=== PATIENT | male | born 1960 | race Caucasian/White ===

== ENCOUNTER 2019-07-12 07:51 | Observation (INO) | payer SELFPAY ==
[~2019-07-12] VITALS: Ht 185.4 cm; Wt 86.4 kg
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
--- NOTE | 2019-07-12 09:24 | RAD ---
Examination: CT HEAD AND CERVICAL SPINE WO History: Fall, pain Comparison/Correlation: None Findings: Axial images of the head and cervical spine were obtained without contrast. Sagittal and coronal reformatted images of the cervical spine were provided. Ventricles are normal size. No intracranial hemorrhage or mass effect. Partial opacification of the left frontal sinus medially is present. No depressed skull fracture. Reversal of cervical lordosis is present. Atlantoaxial joint degenerative remodeling is present. Bony densities subjacent to the anterior arch of C1 is present. These probably represent accessory ossification centers. No soft tissue swelling at the site. The bony structures are well corticated. Moderate C5-6 and C6-7 disc space narrowing is present. Significant spurring is present involving the cervical spine vertebral bodies anteriorly. Spurring at the posterior margin of the C5-C7 disc space levels also noted with marked bony encroachment on the neural foramina at the levels especially on the right but also on the left. Soft tissues are unremarkable. Spinal canal stenosis is noted in multiple levels. This is especially noted seen at C6. Short pedicles noted. Impression: No intracranial hemorrhage. Advanced degenerative changes of the cervical spine. No displaced fracture or bone destruction. Spinal canal and foraminal stenoses are present. Reversal of cervical lordosis may represent spasm or contraction. PQRS Compliance Statement: One or more of the following individualized dose reduction techniques were utilized for this examination: 1. Automated exposure control 2. Adjustment of the mA and/or kV according to patient size 3. Use of iterative reconstruction technique Electronically signed by: Connor Chen MD (07/12/2019 9:20 AM) [facility]
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
--- NOTE | 2019-07-12 09:37 | RAD ---
Examination: CT LUMBAR SPINE WO CONTRAST History: Fall, pain Comparison/Correlation: None Findings: Axial images of the lumbar spine were obtained without contrast. Sagittal and coronal reformatted images were provided. Alignment is normal. Mild to moderate L2-3 disc space narrowing is present. Spurring is noted at multiple levels of the lumbar spine. Facet joint degenerative changes of the lumbar spine are present. No displaced fracture or bone destruction. Soft tissues are unremarkable. Surgical clips are present involving the left pelvic sidewall. Severe spinal canal stenosis at L3-4 and L4-5 is present with concentric disc bulge and ligamentum flavum hypertrophy along with facet joint degenerative hypertrophy. Partially visualized retroperitoneum is unremarkable. Vertebral body heights are adequate. Impression: There is severe canal stenosis at L3-L4 and L4-5. Degenerative changes of the spine noted. No fracture, malalignment, or bone destruction. PQRS Compliance Statement: One or more of the following individualized dose reduction techniques were utilized for this examination: 1. Automated exposure control 2. Adjustment of the mA and/or kV according to patient size 3. Use of iterative reconstruction technique Electronically signed by: Connor Chen MD (07/12/2019 9:34 AM) [facility]
[2019-07-12] MEDS ORDERED: ACETAMINOPHEN 325 MG TABLET. PO PRN (10:15)
[2019-07-12] MEDS ORDERED: LORazepam 0.5 MG TABLET PO ONE (10:15)
[2019-07-12] MEDS ORDERED: DOCUSATE SODIUM 100 MG CAPSULE. PO PRN (10:15)
[2019-07-12] MEDS ORDERED: HYDROcodone/APAP 5/325MG 1 TAB TABLET PO ONE (10:15)
[2019-07-12] MEDS ORDERED: ZOLPIDEM 5 MG TABLET. PO PRN (10:15)
[2019-07-12] MEDS ORDERED: ALBUTEROL SULFATE 2.5 MG/3 ML NEBU. NEB PRN (10:15)
[2019-07-12] MEDS ORDERED: LORazepam 0.5 MG TABLET PO PRN (10:15)
[2019-07-12] MEDS ORDERED: diphenhydrAMINE 50 MG/ML VIAL IVP PRN (10:15)
[2019-07-12 10:24] LABS: BASO % 0 % (0-3); EOS # 0.4 x10^3/uL (0.0-0.7); EOS % 4 % (0-3); HEMATOCRIT 43.9 % (39.0-53.0); HEMOGLOBIN 14.8 g/dL (13.0-17.5); LYMPH # 2.1 x10^3/uL (1.0-4.8); LYMPH % 20 % (24-48); MEAN CORPUSCULAR HEMOGLOBIN 31 pg (25-35); MEAN CORPUSCULAR HGB CONC 34 g/dL (31-37); MEAN CORPUSCULAR VOLUME 91 fL (79-100); MONO # 0.8 x10^3/uL (0.0-1.1); MONO % 8 % (0-9); NEUT # 7.2 x10^3/uL (1.8-7.7); NEUT % 68 % (31-73); PLATELET COUNT 255 x10^3/uL (140-400); RED BLOOD COUNT 4.81 x10^6/uL (4.30-5.70); WHITE BLOOD COUNT 10.7 x10^3/uL (4.0-11.0)
[2019-07-12 10:38] LABS: CALCIUM 9.4 mg/dL (8.5-10.1); CREATININE 0.9 mg/dL (0.7-1.3); GFR 86.4; POTASSIUM 4.4 mmol/L (3.5-5.1)
[2019-07-12 10:44] LABS: ALBUMIN 3.9 g/dL (3.4-5.0); ALBUMIN/GLOBULIN RATIO 1.2 (1.0-1.7); TOTAL BILIRUBIN 0.3 mg/dL (0.2-1.0); TOTAL PROTEIN 7.1 g/dL (6.4-8.2)
[2019-07-12 11:00] VITALS: BP 126/99
[2019-07-12] MEDS: NICOTINE 21MG PATCH. TD PRN (12:38)
[2019-07-12] MEDS: MORPHINE SULFATE 2 MG/ML VIAL. IV PRN ×3 (12:38→19:58)
[2019-07-12] MEDS: ONDANSETRON PF 4 MG/2 ML VIAL. IV PRN ×2 (12:38→17:17)
[2019-07-12 15:04] VITALS: BP 131/81
[2019-07-12] MEDS ORDERED: GABA300C18 PO (16:48)
[2019-07-12] MEDS ORDERED: CLON1TAB PO (16:48)
[2019-07-12] MEDS ORDERED: QUET50TA5 PO (16:48)
--- NOTE | 2019-07-12 17:12 | PDOC ---
Provider Note Provider Note 58-year-old male presenting the emergency department after falling yesterday about 11:00 AM c/o unsteadiness, right arm weakness, tingling in right hand, mild neck pain cervical CT reviewed Cervical MRI pending, asked to do today Dr. Paige and Dr. Brewer consulted will follow [facility] JOSEPH MD Jul 12, 2019 17:12
[2019-07-12] MEDS ORDERED: PRAM0.255 PO (17:24)
--- NOTE | 2019-07-12 18:31 | NUR ---
called consult for dr shell at this time
[2019-07-12 19:00] VITALS: BP 118/81
[2019-07-12 20:49] LABS: BARBITURATES NEG (NEG); BENZODIAZEPINES NEG (NEG); CANNABINOIDS NEG (NEG); COCAINE NEG (NEG); METHADONE NEG (NEG); OPIATES POS (NEG); PHENCYCLIDINE NEG (NEG)
[2019-07-12 20:50] LABS: AMPHETAMINE/METHAMPHETAMINE NEG (NEG)
[2019-07-12] MEDS ORDERED: GABAPENTIN 100 MG CAPSULE. PO SCH (21:00)
[2019-07-12] MEDS: clonazePAM 0.5 MG TABLET PO SCH (21:22)
[2019-07-12] MEDS: QUEtiapine 25 MG TABLET. PO SCH (21:22)
[2019-07-12] MEDS: PRAMIPEXOLE 0.25 MG TABLET. PO SCH (21:22)
[2019-07-12] MEDS: GABAPENTIN 300 MG CAPSULE. PO SCH (21:23)
[2019-07-12 23:00] VITALS: BP 119/65
--- NOTE | 2019-07-12 23:23 | PDOC1 ---
History and Physical Date of Admission Date of Admission 07/12/2019 Identification/Chief Complaint Chief Complaint I fell History of Present Illness History of Present Illness Patient is a 58 year old male with past medical history of prostate cancer who was in his [facility] state of health until the day prior to admission when he suffered a fall from own height, He slipped backwards and fell on his back. Patient tried to self medicate athome with very litlle relief of his symptoms that included paresthesias in his upper extremities. He describes an exquisite pain over his thoracic verterae around the the t10 level. Patient denies loss of consciousness, no blurred vision, no slurred speech, he does refer some weakness over the upper extremities reasono why he decided to consult the ER. Patient found to have spinal stenosis, and Dr Hanks was ocntacted, he requested admission to our service and MRI of the thoracic spine At the itme of my note the patient is in acute distress due to the symptoms, all concerns were addressed to the best of my abilities and reassruance was provided. Past Medical History Heme/Onc: Cancer Current Problem List Problem List Problems Medical Problems: (1) Low back pain Status: Acute (2) Neck pain Status: Acute (3) Paresthesia of hand, bilateral Status: Acute (4) Wristdrop Status: Acute Current Medications Current Medications Current Medications Medications (Trade) Dose Ordered Sig/César Start Time Stop Time Status Last Admin Dose Admin Acetaminophen (Tylenol) 650 mg PRN Q4HRS PRN 07/12/19 10:15 Acetaminophen/ Hydrocodone Bitart (Lortab 5/325) 1 tab 1X ONCE 07/12/19 10:15 07/12/19 10:16 DC 07/12/19 10:11 1 TAB Albuterol Sulfate (Ventolin Neb Soln) 2.5 mg PRN Q4HRS PRN 07/12/19 10:15 Clonazepam (KlonoPIN) 1 mg QHS 07/12/19 21:00 07/12/19 21:22 1 MG Diphenhydramine HCl (Benadryl) 25 mg PRN Q4HRS PRN 07/12/19 10:15 Docusate Sodium (Colace) 100 mg PRN BID PRN 07/12/19 10:15 Gabapentin (Neurontin) 600 mg TID 07/12/19 21:00 07/12/19 21:23 600 MG Lorazepam (Ativan) 0.5 mg PRN Q4HRS PRN 07/12/19 10:15 07/12/19 16:02 0.5 MG Morphine Sulfate (Morphine Sulfate) 2 mg PRN Q2HR PRN 07/12/19 12:15 07/12/19 19:58 2 MG Nicotine (Nicoderm Cq 21mg) 1 patch PRN DAILY PRN 07/12/19 10:30 07/12/19 12:38 1 PATCH Ondansetron HCl (Zofran) 4 mg PRN Q4HRS PRN 07/12/19 10:15 07/12/19 17:17 4 MG Pramipexole Dihydrochloride (miraPEX) 0.5 mg HS 07/12/19 21:00 07/12/19 21:22 0.5 MG Quetiapine Fumarate (SEROquel) 50 mg QHS 07/12/19 21:00 07/12/19 21:22 50 MG Zolpidem Tartrate (Ambien) 5 mg PRN QHS PRN 07/12/19 10:15 Allergies Allergies Allergies Coded Allergies Type Severity Reaction Last Updated Verified No Known Drug Allergies 07/12/19 No ROS Review of System CONSTITUTIONAL: No fever or chills EYES: No recent changes SKIN: No rash or itching CARDIOVASCULAR: No chest pain, syncope, palpitations, or edema RESPIRATORY: No SOB or cough GASTROINTESTINAL: No nausea, vomiting or abdominal pain NEUROLOGICAL: No headaches or weakness ENDOCRINE: No cold or heat intolerance GENITOURINARY: No urgency or frequency of urination MUSCULOSKELETAL: No back pain or joint pain LYMPHATICS: No enlarged lymph nodes PSYCHIATRIC: No anxiety or depression Physical Exam Physical Exam GEN.: No apparent distress. Alert and oriented. HEENT: Head is normocephalic, atraumatic NECK: Supple. LUNGS: Clear to auscultation. HEART: RRR, S1, S2 present. Peripheral pulses intact ABDOMEN: Soft, nontender. Positive bowel sounds. EXTREMITIES: Without any cyanosis. NEUROLOGIC: Normal speech, normal tone PSYCHIATRIC: Normal affect, normal mood. SKIN: No ulcerations Vitals Vitals Vital Signs Date Time Temp Pulse Resp B/P (MAP) Pulse Ox O2 Delivery O2 Flow Rate FiO2 07/12/19 20:30 Room Air 07/12/19 19:00 97.8 78 118/81 (93) 95 97.8 07/12/19 15:04 18 Labs Labs Laboratory Tests Test 07/12/19 10:17 07/12/19 12:59 07/12/19 20:30 White Blood Count 10.7 x10^3/uL (4.0-11.0) Red Blood Count 4.81 x10^6/uL (4.30-5.70) Hemoglobin 14.8 g/dL (13.0-17.5) Hematocrit 43.9 % (39.0-53.0) Mean Corpuscular Volume 91 fL (79-100) Mean Corpuscular Hemoglobin 31 pg (25-35) Mean Corpuscular Hemoglobin Concent 34 g/dL (31-37) Red Cell Distribution Width 14.0 % (11.5-14.5) Platelet Count 255 x10^3/uL (140-400) Neutrophils (%) (Auto) 68 % (31-73) Lymphocytes (%) (Auto) 20 % (24-48) Monocytes (%) (Auto) 8 % (0-9) Eosinophils (%) (Auto) 4 % (0-3) Basophils (%) (Auto) 0 % (0-3) Neutrophils # (Auto) 7.2 x10^3/uL (1.8-7.7) Lymphocytes # (Auto) 2.1 x10^3/uL (1.0-4.8) Monocytes # (Auto) 0.8 x10^3/uL (0.0-1.1) Eosinophils # (Auto) 0.4 x10^3/uL (0.0-0.7) Basophils # (Auto) 0.0 x10^3/uL (0.0-0.2) Sodium Level 140 mmol/L (136-145) Potassium Level 4.4 mmol/L (3.5-5.1) Chloride Level 101 mmol/L (98-107) Carbon Dioxide Level 29 mmol/L (21-32) Anion Gap 10 (6-14) Blood Urea Nitrogen 19 mg/dL (8-26) Creatinine 0.9 mg/dL (0.7-1.3) Estimated GFR (Cockcroft-Gault) 86.4 BUN/Creatinine Ratio 21 (6-20) Glucose Level 114 mg/dL (70-99) Calcium Level 9.4 mg/dL (8.5-10.1) Total Bilirubin 0.3 mg/dL (0.2-1.0) Aspartate Amino Transf (AST/SGOT) 39 U/L (15-37) Alanine Aminotransferase (ALT/SGPT) 46 U/L (16-63) Alkaline Phosphatase 102 U/L (46-116) Total Protein 7.1 g/dL (6.4-8.2) Albumin 3.9 g/dL (3.4-5.0) Albumin/Globulin Ratio 1.2 (1.0-1.7) Creatine Kinase 617 U/L (39-308) Vitamin B12 Level 594 pg/mL (247-911) Thyroid Stimulating Hormone (TSH) 3.677 uIU/mL (0.358-3.74) Urine Opiates Screen Pos (NEG) Urine Methadone Screen Neg (NEG) Urine Barbiturates Neg (NEG) Urine Phencyclidine Screen Neg (NEG) Urine Amphetamine/Methamphetamine Neg (NEG) Urine Benzodiazepines Screen Neg (NEG) Urine Cocaine Screen Neg (NEG) Urine Cannabinoids Screen Neg (NEG) Urine Ethyl Alcohol Neg (NEG) Laboratory Tests Test 07/12/19 10:17 07/12/19 12:59 07/12/19 20:30 White Blood Count 10.7 x10^3/uL (4.0-11.0) Red Blood Count 4.81 x10^6/uL (4.30-5.70) Hemoglobin 14.8 g/dL (13.0-17.5) Hematocrit 43.9 % (39.0-53.0) Mean Corpuscular Volume 91 fL (79-100) Mean Corpuscular Hemoglobin 31 pg (25-35) Mean Corpuscular Hemoglobin Concent 34 g/dL (31-37) Red Cell Distribution Width 14.0 % (11.5-14.5) Platelet Count 255 x10^3/uL (140-400) Neutrophils (%) (Auto) 68 % (31-73) Lymphocytes (%) (Auto) 20 % (24-48) Monocytes (%) (Auto) 8 % (0-9) Eosinophils (%) (Auto) 4 % (0-3) Basophils (%) (Auto) 0 % (0-3) Neutrophils # (Auto) 7.2 x10^3/uL (1.8-7.7) Lymphocytes # (Auto) 2.1 x10^3/uL (1.0-4.8) Monocytes # (Auto) 0.8 x10^3/uL (0.0-1.1) Eosinophils # (Auto) 0.4 x10^3/uL (0.0-0.7) Basophils # (Auto) 0.0 x10^3/uL (0.0-0.2) Sodium Level 140 mmol/L (136-145) Potassium Level 4.4 mmol/L (3.5-5.1) Chloride Level 101 mmol/L (98-107) Carbon Dioxide Level 29 mmol/L (21-32) Anion Gap 10 (6-14) Blood Urea Nitrogen 19 mg/dL (8-26) Creatinine 0.9 mg/dL (0.7-1.3) Estimated GFR (Cockcroft-Gault) 86.4 BUN/Creatinine Ratio 21 (6-20) Glucose Level 114 mg/dL (70-99) Calcium Level 9.4 mg/dL (8.5-10.1) Total Bilirubin 0.3 mg/dL (0.2-1.0) Aspartate Amino Transf (AST/SGOT) 39 U/L (15-37) Alanine Aminotransferase (ALT/SGPT) 46 U/L (16-63) Alkaline Phosphatase 102 U/L (46-116) Total Protein 7.1 g/dL (6.4-8.2) Albumin 3.9 g/dL (3.4-5.0) Albumin/Globulin Ratio 1.2 (1.0-1.7) Creatine Kinase 617 U/L (39-308) Vitamin B12 Level 594 pg/mL (247-911) Thyroid Stimulating Hormone (TSH) 3.677 uIU/mL (0.358-3.74) Urine Opiates Screen Pos (NEG) Urine Methadone Screen Neg (NEG) Urine Barbiturates Neg (NEG) Urine Phencyclidine Screen Neg (NEG) Urine Amphetamine/Methamphetamine Neg (NEG) Urine Benzodiazepines Screen Neg (NEG) Urine Cocaine Screen Neg (NEG) Urine Cannabinoids Screen Neg (NEG) Urine Ethyl Alcohol Neg (NEG) VTE Prophylaxis Ordered VTE Prophylaxis Devices: Yes VTE Pharmacological Prophylaxi: No Assessment/Plan Assessment/Plan Severe canal stenosis at L3-L4 and L4-5. Degenerative changes of the spine noted. Spinal canal and foraminal stenoses are present. History of prostate cancer Plan: pain management neurosurgical consultation further reocmmendations based on clinical course DNR status ROOPA MILES MD Jul 12, 2019 23:23
[2019-07-13 03:00] VITALS: BP 103/60
[2019-07-13 07:15] VITALS: BP 110/68
--- NOTE | 2019-07-13 07:44 | PDOC ---
PROGRESS NOTES Chief Complaint Chief Complaint Severe canal stenosis at L3-L4 and L4-5. Degenerative changes of the spine noted. Neurology, neurosurgery consulted Spinal canal and foraminal stenoses are present. History of prostate cancer Mild rhabdomyolysis Numbness, tingling and weakness in right UE x 2 days before admission. Numbness and tingling in bilateral LE, left > right, worse x 2 days. Fall. Severe C5-C6 stenosis. Smoking. History of Present Illness History of Present Illness 58 year old male with past medical history of prostate cancer who was in his [facility] state of health until the day prior to admission when he suffered a fall from own height, He slipped backwards and fell on his back. Patient tried to self medicate at home with very little relief of his symptoms that included paresthesias in his upper extremities. He describes an exquisite pain over his thoracic verterae around the the t10 level. Patient denies loss of consciousness, no blurred vision, no slurred speech, he does refer some weakness over the upper extremities reason why he decided to consult the ER. Patient found to have spinal stenosis, and Dr Hanks was contacted, he requested admission to our service and MRI of the thoracic spine. Feeling numb and weak in right hand. Neurology, neurosurgery, and PMR consulted. Vitals Vitals Vital Signs Date Time Temp Pulse Resp B/P (MAP) Pulse Ox O2 Delivery O2 Flow Rate FiO2 07/13/19 07:15 97.7 66 2 110/68 (82) 97 Room Air 97.7 Physical Exam General: Alert, Oriented X3, Cooperative Heart: Regular rate, Normal S1, Normal S2 Lungs: Clear Abdomen: Normal bowel sounds, Soft Extremities: No clubbing, No cyanosis Skin: No rashes, No breakdown Labs LABS Laboratory Tests Test 07/12/19 10:17 07/12/19 12:59 07/12/19 20:30 White Blood Count 10.7 x10^3/uL (4.0-11.0) Red Blood Count 4.81 x10^6/uL (4.30-5.70) Hemoglobin 14.8 g/dL (13.0-17.5) Hematocrit 43.9 % (39.0-53.0) Mean Corpuscular Volume 91 fL (79-100) Mean Corpuscular Hemoglobin 31 pg (25-35) Mean Corpuscular Hemoglobin Concent 34 g/dL (31-37) Red Cell Distribution Width 14.0 % (11.5-14.5) Platelet Count 255 x10^3/uL (140-400) Neutrophils (%) (Auto) 68 % (31-73) Lymphocytes (%) (Auto) 20 % (24-48) Monocytes (%) (Auto) 8 % (0-9) Eosinophils (%) (Auto) 4 % (0-3) Basophils (%) (Auto) 0 % (0-3) Neutrophils # (Auto) 7.2 x10^3/uL (1.8-7.7) Lymphocytes # (Auto) 2.1 x10^3/uL (1.0-4.8) Monocytes # (Auto) 0.8 x10^3/uL (0.0-1.1) Eosinophils # (Auto) 0.4 x10^3/uL (0.0-0.7) Basophils # (Auto) 0.0 x10^3/uL (0.0-0.2) Sodium Level 140 mmol/L (136-145) Potassium Level 4.4 mmol/L (3.5-5.1) Chloride Level 101 mmol/L (98-107) Carbon Dioxide Level 29 mmol/L (21-32) Anion Gap 10 (6-14) Blood Urea Nitrogen 19 mg/dL (8-26) Creatinine 0.9 mg/dL (0.7-1.3) Estimated GFR (Cockcroft-Gault) 86.4 BUN/Creatinine Ratio 21 (6-20) Glucose Level 114 mg/dL (70-99) Calcium Level 9.4 mg/dL (8.5-10.1) Total Bilirubin 0.3 mg/dL (0.2-1.0) Aspartate Amino Transf (AST/SGOT) 39 U/L (15-37) Alanine Aminotransferase (ALT/SGPT) 46 U/L (16-63) Alkaline Phosphatase 102 U/L (46-116) Total Protein 7.1 g/dL (6.4-8.2) Albumin 3.9 g/dL (3.4-5.0) Albumin/Globulin Ratio 1.2 (1.0-1.7) Creatine Kinase 617 U/L (39-308) Vitamin B12 Level 594 pg/mL (247-911) Thyroid Stimulating Hormone (TSH) 3.677 uIU/mL (0.358-3.74) Urine Opiates Screen Pos (NEG) Urine Methadone Screen Neg (NEG) Urine Barbiturates Neg (NEG) Urine Phencyclidine Screen Neg (NEG) Urine Amphetamine/Methamphetamine Neg (NEG) Urine Benzodiazepines Screen Neg (NEG) Urine Cocaine Screen Neg (NEG) Urine Cannabinoids Screen Neg (NEG) Urine Ethyl Alcohol Neg (NEG) Assessment and Plan Assessmemt and Plan Problems Medical Problems: (1) Low back pain Status: Acute (2) Neck pain Status: Acute (3) Paresthesia of hand, bilateral Status: Acute (4) Wristdrop Status: Acute Comment Review of Relevant I have reviewed the following items amrita (where applicable) has been applied. Labs Laboratory Tests Test 07/12/19 10:17 07/12/19 12:59 07/12/19 20:30 White Blood Count 10.7 x10^3/uL (4.0-11.0) Red Blood Count 4.81 x10^6/uL (4.30-5.70) Hemoglobin 14.8 g/dL (13.0-17.5) Hematocrit 43.9 % (39.0-53.0) Mean Corpuscular Volume 91 fL (79-100) Mean Corpuscular Hemoglobin 31 pg (25-35) Mean Corpuscular Hemoglobin Concent 34 g/dL (31-37) Red Cell Distribution Width 14.0 % (11.5-14.5) Platelet Count 255 x10^3/uL (140-400) Neutrophils (%) (Auto) 68 % (31-73) Lymphocytes (%) (Auto) 20 % (24-48) Monocytes (%) (Auto) 8 % (0-9) Eosinophils (%) (Auto) 4 % (0-3) Basophils (%) (Auto) 0 % (0-3) Neutrophils # (Auto) 7.2 x10^3/uL (1.8-7.7) Lymphocytes # (Auto) 2.1 x10^3/uL (1.0-4.8) Monocytes # (Auto) 0.8 x10^3/uL (0.0-1.1) Eosinophils # (Auto) 0.4 x10^3/uL (0.0-0.7) Basophils # (Auto) 0.0 x10^3/uL (0.0-0.2) Sodium Level 140 mmol/L (136-145) Potassium Level 4.4 mmol/L (3.5-5.1) Chloride Level 101 mmol/L (98-107) Carbon Dioxide Level 29 mmol/L (21-32) Anion Gap 10 (6-14) Blood Urea Nitrogen 19 mg/dL (8-26) Creatinine 0.9 mg/dL (0.7-1.3) Estimated GFR (Cockcroft-Gault) 86.4 BUN/Creatinine Ratio 21 (6-20) Glucose Level 114 mg/dL (70-99) Calcium Level 9.4 mg/dL (8.5-10.1) Total Bilirubin 0.3 mg/dL (0.2-1.0) Aspartate Amino Transf (AST/SGOT) 39 U/L (15-37) Alanine Aminotransferase (ALT/SGPT) 46 U/L (16-63) Alkaline Phosphatase 102 U/L (46-116) Total Protein 7.1 g/dL (6.4-8.2) Albumin 3.9 g/dL (3.4-5.0) Albumin/Globulin Ratio 1.2 (1.0-1.7) Creatine Kinase 617 U/L (39-308) Vitamin B12 Level 594 pg/mL (247-911) Thyroid Stimulating Hormone (TSH) 3.677 uIU/mL (0.358-3.74) Urine Opiates Screen Pos (NEG) Urine Methadone Screen Neg (NEG) Urine Barbiturates Neg (NEG) Urine Phencyclidine Screen Neg (NEG) Urine Amphetamine/Methamphetamine Neg (NEG) Urine Benzodiazepines Screen Neg (NEG) Urine Cocaine Screen Neg (NEG) Urine Cannabinoids Screen Neg (NEG) Urine Ethyl Alcohol Neg (NEG) Laboratory Tests Test 07/12/19 10:17 07/12/19 12:59 07/12/19 20:30 White Blood Count 10.7 x10^3/uL (4.0-11.0) Red Blood Count 4.81 x10^6/uL (4.30-5.70) Hemoglobin 14.8 g/dL (13.0-17.5) Hematocrit 43.9 % (39.0-53.0) Mean Corpuscular Volume 91 fL (79-100) Mean Corpuscular Hemoglobin 31 pg (25-35) Mean Corpuscular Hemoglobin Concent 34 g/dL (31-37) Red Cell Distribution Width 14.0 % (11.5-14.5) Platelet Count 255 x10^3/uL (140-400) Neutrophils (%) (Auto) 68 % (31-73) Lymphocytes (%) (Auto) 20 % (24-48) Monocytes (%) (Auto) 8 % (0-9) Eosinophils (%) (Auto) 4 % (0-3) Basophils (%) (Auto) 0 % (0-3) Neutrophils # (Auto) 7.2 x10^3/uL (1.8-7.7) Lymphocytes # (Auto) 2.1 x10^3/uL (1.0-4.8) Monocytes # (Auto) 0.8 x10^3/uL (0.0-1.1) Eosinophils # (Auto) 0.4 x10^3/uL (0.0-0.7) Basophils # (Auto) 0.0 x10^3/uL (0.0-0.2) Sodium Level 140 mmol/L (136-145) Potassium Level 4.4 mmol/L (3.5-5.1) Chloride Level 101 mmol/L (98-107) Carbon Dioxide Level 29 mmol/L (21-32) Anion Gap 10 (6-14) Blood Urea Nitrogen 19 mg/dL (8-26) Creatinine 0.9 mg/dL (0.7-1.3) Estimated GFR (Cockcroft-Gault) 86.4 BUN/Creatinine Ratio 21 (6-20) Glucose Level 114 mg/dL (70-99) Calcium Level 9.4 mg/dL (8.5-10.1) Total Bilirubin 0.3 mg/dL (0.2-1.0) Aspartate Amino Transf (AST/SGOT) 39 U/L (15-37) Alanine Aminotransferase (ALT/SGPT) 46 U/L (16-63) Alkaline Phosphatase 102 U/L (46-116) Total Protein 7.1 g/dL (6.4-8.2) Albumin 3.9 g/dL (3.4-5.0) Albumin/Globulin Ratio 1.2 (1.0-1.7) Creatine Kinase 617 U/L (39-308) Vitamin B12 Level 594 pg/mL (247-911) Thyroid Stimulating Hormone (TSH) 3.677 uIU/mL (0.358-3.74) Urine Opiates Screen Pos (NEG) Urine Methadone Screen Neg (NEG) Urine Barbiturates Neg (NEG) Urine Phencyclidine Screen Neg (NEG) Urine Amphetamine/Methamphetamine Neg (NEG) Urine Benzodiazepines Screen Neg (NEG) Urine Cocaine Screen Neg (NEG) Urine Cannabinoids Screen Neg (NEG) Urine Ethyl Alcohol Neg (NEG) Medications Current Medications Acetaminophen/ Hydrocodone Bitart (Lortab 5/325) 1 tab 1X ONCE PO Last administered on 07/12/19at 10:11; Start 07/12/19 at 10:15; Stop 07/12/19 at 10:16; Status DC Lorazepam (Ativan) 0.5 mg 1X ONCE PO Last administered on 07/12/19at 10:11; Start 07/12/19 at 10:15; Stop 07/12/19 at 10:16; Status DC Ondansetron HCl (Zofran) 4 mg PRN Q4HRS PRN IV NAUSEA/VOMITING Last administered on 07/12/19at 17:17; Start 07/12/19 at 10:15 Zolpidem Tartrate (Ambien) 5 mg PRN QHS PRN PO INSOMNIA; Start 07/12/19 at 10:15 Acetaminophen (Tylenol) 650 mg PRN Q4HRS PRN PO TEMP OVER 100.4F OR MILD PAIN; Start 07/12/19 at 10:15 Diphenhydramine HCl (Benadryl) 25 mg PRN Q4HRS PRN IVP ITCHING; Start 07/12/19 at 10:15 Docusate Sodium (Colace) 100 mg PRN BID PRN PO CONSTIPATION; Start 07/12/19 at 10:15 Albuterol Sulfate (Ventolin Neb Soln) 2.5 mg PRN Q4HRS PRN NEB SHORTNESS OF BREATH; Start 07/12/19 at 10:15 Lorazepam (Ativan) 0.5 mg PRN Q4HRS PRN PO ANXIETY / AGITATION Last administered on 07/12/19at 16:02; Start 07/12/19 at 10:15 Nicotine (Nicoderm Cq 21mg) 1 patch PRN DAILY PRN TD SMOKING CESSATION Last administered on 07/12/19at 12:38; Start 07/12/19 at 10:30 Morphine Sulfate (Morphine Sulfate) 2 mg PRN Q2HR PRN IV PAIN Last administered on 07/12/19at 19:58; Start 07/12/19 at 12:15 Gabapentin (Neurontin) 200 mg TID PO ; Start 07/12/19 at 21:00; Stop 07/12/19 at 18:36; Status DC Gabapentin (Neurontin) 600 mg TID PO Last administered on 07/12/19at 21:23; Start 07/12/19 at 21:00 Pramipexole Dihydrochloride (miraPEX) 0.5 mg HS PO Last administered on 07/12/19at 21:22; Start 07/12/19 at 21:00 Clonazepam (KlonoPIN) 1 mg QHS PO Last administered on 07/12/19at 21:22; Start 07/12/19 at 21:00 Quetiapine Fumarate (SEROquel) 50 mg QHS PO Last administered on 07/12/19at 21:22; Start 07/12/19 at 21:00 Active Scripts Active Reported Mirapex (Pramipexole Di-Hcl) 0.25 Mg Tablet 0.5 Mg PO HS Seroquel (Quetiapine Fumarate) 50 Mg Tablet 1 Tab PO QHS Klonopin (Clonazepam) 1 Mg Tablet 1 Mg PO HS Gabapentin 300 Mg Capsule 600 Mg PO TID Vitals/I & O Vital Sign - Last 24 Hours 07/12/19 07/12/19 07/12/19 07/12/19 08:10 09:03 09:33 10:03 Temp 98.4 98.4 Pulse 93 86 80 82 Resp 20 16 16 16 B/P (MAP) 160/90 (113) 134/87 (103) 141/79 (99) 131/76 (94) Pulse Ox 97 97 96 96 O2 Delivery Room Air Room Air Room Air 07/12/19 07/12/19 07/12/19 07/12/19 10:11 10:33 11:00 11:00 Pulse 82 Resp 16 16 B/P (MAP) 140/83 (102) Pulse Ox 95 97 O2 Delivery Room Air Room Air Room Air Room Air 2/07/12/19 07/12/19 07/12/19 11:00 12:38 13:10 15:04 Temp 98.6 98.0 98.6 98.0 Pulse 82 69 Resp 20 18 B/P (MAP) 126/99 (108) 131/81 (98) Pulse Ox 96 96 O2 Delivery Room Air Room Air Room Air Room Air 07/12/19 07/12/19 07/12/19 07/12/19 15:55 16:30 19:00 19:30 Temp 97.8 97.8 Pulse 78 B/P (MAP) 118/81 (93) Pulse Ox 95 O2 Delivery Room Air Room Air Room Air Room Air 07/12/19 07/12/19 07/12/19 07/13/19 19:58 20:30 23:00 03:00 Temp 98.0 97.7 98.0 97.7 Pulse 72 93 Resp 18 18 B/P (MAP) 119/65 (83) 103/60 (74) Pulse Ox 96 96 O2 Delivery Room Air Room Air Room Air Room Air 07/13/19 07:15 Temp 97.7 97.7 Pulse 66 Resp 2 B/P (MAP) 110/68 (82) Pulse Ox 97 O2 Delivery Room Air Intake and Output 07/12/19 07/12/19 07/13/19 14:59 22:59 06:59 Intake Total 600 ml Balance 600 ml MORGAN ABRAHAM MD Jul 13, 2019 07:44
[2019-07-13] MEDS: GABAPENTIN 300 MG CAPSULE. PO SCH ×3 (07:54→20:43)
[2019-07-13] MEDS: MORPHINE SULFATE 2 MG/ML VIAL. IV PRN ×6 (07:56→23:26)
[2019-07-13] MEDS: NICOTINE 21MG PATCH. TD PRN (09:37)
--- NOTE | 2019-07-13 09:40 | RAD ---
CERVICAL SPINE WO CONTRAST History: Numbness. Tingling in arms. Trauma. Technique: Multiplanar, multi sequential noncontrast MR imaging was performed of the cervical spine. Comparison: CT July 12, 2019 Findings: Straightening of the normal cervical lordosis. Normal vertebral body height. No fracture. Generally small spinal canal. Minimal degenerative endplate edema C4-C5 and C6-C7. T2/STIR hyperintense signal within the cervical cord at the C5-C6 level. C2-C3: Small central disc protrusion. No canal narrowing. Uncovertebral and facet arthropathy. Mild inferior right neuroforaminal narrowing. No left neuroforaminal narrowing. C3-C4: Posterior disc osteophyte complex. Mild to moderate canal narrowing. Cord flattening. Facet arthropathy. No neuroforaminal narrowing. C4-C5: Posterior disc osteophyte complex. Moderate canal narrowing. Cord flattening. Uncovertebral and facet arthropathy. Severe right and moderate to severe left neuroforaminal narrowing. C5-C6: Posterior disc osteophyte complex. Severe canal narrowing. Cord flattening. Uncovertebral and facet arthropathy. Severe bilateral neural foraminal narrowing. C6-C7: Posterior disc osteophyte complex. Moderate to severe canal narrowing. Cord flattening. Uncovertebral and facet arthropathy. Severe right and moderate to severe left neuroforaminal narrowing. C7-T1: Posterior disc bulge. No canal narrowing. Uncovertebral and facet arthropathy. Moderate to severe right and moderate left neuroforaminal narrowing. Upper thoracic facet arthropathy contributing to mild neuroforaminal narrowing. Impression: 1. 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 2. Increased signal within the cervical cord at the C5-C6 level, may relate to edema or myelomalacia. 3. Multilevel severe neural foraminal narrowing, as described. Electronically signed by: Garrison Zaragoza DO (07/13/2019 9:37 AM) [id number]
[2019-07-13 11:11] VITALS: BP 137/68
[2019-07-13] MEDS: NICOTINE POLACRILEX 2MG GUM PACKAGE of 12. BC PRN ×2 (12:28→14:12)
[2019-07-13] MEDS ORDERED: tiZANidine 4 MG TABLET. PO PRN (13:00)
[2019-07-13] MEDS: BISACODYL 5 MG TABLET.DR. PO SCH (14:00)
[2019-07-13] MEDS: SENNOSIDES/DOCUSATE 8.6/50MG TABLET. PO SCH ×2 (14:13→20:44)
[2019-07-13] MEDS: methylPREDNISolone 4 MG TABLET. PO SCH ×4 (14:33→20:44)
[2019-07-13 15:05] VITALS: BP 144/75
--- NOTE | 2019-07-13 15:05 | NUR ---
SS following for discharge planning. SS reviewed pt chart. Pt is self pay pt. HCFS following for self pay status. Pt is from home and is currently on room air. SS will continue to follow for discharge planning.
--- NOTE | 2019-07-13 15:38 | PDOC ---
PROGRESS NOTES Subjective Subjective intermittent tingling in right arm and hand, slightly better today feels unsteady right feels stronger Objective Objective Vital Signs Date Time Temp Pulse Resp B/P (MAP) Pulse Ox O2 Delivery O2 Flow Rate FiO2 07/13/19 15:05 98.2 89 18 144/75 (98) 97 Room Air 98.2 Intake and Output 07/13/19 07:00 Intake Total 600 ml Balance 600 ml Intake Oral 600 ml # Voids 4 Physical Exam General: Alert, Oriented X3, Cooperative, No acute distress MUSCULOSKELETAL: Other (MUNOZ) Neuro: Normal speech, Other (Right arm and hand strength improved) Assessment Assessment Problems Medical Problems: (1) Low back pain Status: Acute (2) Neck pain Status: Acute (3) Paresthesia of hand, bilateral Status: Acute (4) Wristdrop Status: Acute Plan Plan of Care Reviewed cervical MRI. 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 Labs Laboratory Tests Test 07/12/19 10:17 07/12/19 12:59 07/12/19 20:30 White Blood Count 10.7 x10^3/uL (4.0-11.0) Red Blood Count 4.81 x10^6/uL (4.30-5.70) Hemoglobin 14.8 g/dL (13.0-17.5) Hematocrit 43.9 % (39.0-53.0) Mean Corpuscular Volume 91 fL (79-100) Mean Corpuscular Hemoglobin 31 pg (25-35) Mean Corpuscular Hemoglobin Concent 34 g/dL (31-37) Red Cell Distribution Width 14.0 % (11.5-14.5) Platelet Count 255 x10^3/uL (140-400) Neutrophils (%) (Auto) 68 % (31-73) Lymphocytes (%) (Auto) 20 % (24-48) Monocytes (%) (Auto) 8 % (0-9) Eosinophils (%) (Auto) 4 % (0-3) Basophils (%) (Auto) 0 % (0-3) Neutrophils # (Auto) 7.2 x10^3/uL (1.8-7.7) Lymphocytes # (Auto) 2.1 x10^3/uL (1.0-4.8) Monocytes # (Auto) 0.8 x10^3/uL (0.0-1.1) Eosinophils # (Auto) 0.4 x10^3/uL (0.0-0.7) Basophils # (Auto) 0.0 x10^3/uL (0.0-0.2) Sodium Level 140 mmol/L (136-145) Potassium Level 4.4 mmol/L (3.5-5.1) Chloride Level 101 mmol/L (98-107) Carbon Dioxide Level 29 mmol/L (21-32) Anion Gap 10 (6-14) Blood Urea Nitrogen 19 mg/dL (8-26) Creatinine 0.9 mg/dL (0.7-1.3) Estimated GFR (Cockcroft-Gault) 86.4 BUN/Creatinine Ratio 21 (6-20) Glucose Level 114 mg/dL (70-99) Calcium Level 9.4 mg/dL (8.5-10.1) Total Bilirubin 0.3 mg/dL (0.2-1.0) Aspartate Amino Transf (AST/SGOT) 39 U/L (15-37) Alanine Aminotransferase (ALT/SGPT) 46 U/L (16-63) Alkaline Phosphatase 102 U/L (46-116) Total Protein 7.1 g/dL (6.4-8.2) Albumin 3.9 g/dL (3.4-5.0) Albumin/Globulin Ratio 1.2 (1.0-1.7) Creatine Kinase 617 U/L (39-308) Vitamin B12 Level 594 pg/mL (247-911) Thyroid Stimulating Hormone (TSH) 3.677 uIU/mL (0.358-3.74) Urine Opiates Screen Pos (NEG) Urine Methadone Screen Neg (NEG) Urine Barbiturates Neg (NEG) Urine Phencyclidine Screen Neg (NEG) Urine Amphetamine/Methamphetamine Neg (NEG) Urine Benzodiazepines Screen Neg (NEG) Urine Cocaine Screen Neg (NEG) Urine Cannabinoids Screen Neg (NEG) Urine Ethyl Alcohol Neg (NEG) Laboratory Tests Test 07/12/19 20:30 Urine Opiates Screen Pos (NEG) Urine Methadone Screen Neg (NEG) Urine Barbiturates Neg (NEG) Urine Phencyclidine Screen Neg (NEG) Urine Amphetamine/Methamphetamine Neg (NEG) Urine Benzodiazepines Screen Neg (NEG) Urine Cocaine Screen Neg (NEG) Urine Cannabinoids Screen Neg (NEG) Urine Ethyl Alcohol Neg (NEG) Medications Current Medications Acetaminophen/ Hydrocodone Bitart (Lortab 5/325) 1 tab 1X ONCE PO Last administered on 07/12/19at 10:11; Start 07/12/19 at 10:15; Stop 07/12/19 at 10:16; Status DC Lorazepam (Ativan) 0.5 mg 1X ONCE PO Last administered on 07/12/19at 10:11; Start 07/12/19 at 10:15; Stop 07/12/19 at 10:16; Status DC Ondansetron HCl (Zofran) 4 mg PRN Q4HRS PRN IV NAUSEA/VOMITING Last administered on 07/12/19at 17:17; Start 07/12/19 at 10:15 Zolpidem Tartrate (Ambien) 5 mg PRN QHS PRN PO INSOMNIA; Start 07/12/19 at 10:15 Acetaminophen (Tylenol) 650 mg PRN Q4HRS PRN PO TEMP OVER 100.4F OR MILD PAIN; Start 07/12/19 at 10:15 Diphenhydramine HCl (Benadryl) 25 mg PRN Q4HRS PRN IVP ITCHING; Start 07/12/19 at 10:15 Docusate Sodium (Colace) 100 mg PRN BID PRN PO CONSTIPATION; Start 07/12/19 at 10:15 Albuterol Sulfate (Ventolin Neb Soln) 2.5 mg PRN Q4HRS PRN NEB SHORTNESS OF BREATH; Start 07/12/19 at 10:15 Lorazepam (Ativan) 0.5 mg PRN Q4HRS PRN PO ANXIETY / AGITATION Last a dministered on 07/12/19at 16:02; Start 07/12/19 at 10:15 Nicotine (Nicoderm Cq 21mg) 1 patch PRN DAILY PRN TD SMOKING CESSATION Last administered on 07/13/19at 09:37; Start 07/12/19 at 10:30 Morphine Sulfate (Morphine Sulfate) 2 mg PRN Q2HR PRN IV PAIN Last administered on 07/13/19at 14:15; Start 07/12/19 at 12:15 Gabapentin (Neurontin) 200 mg TID PO ; Start 07/12/19 at 21:00; Stop 07/12/19 at 18:36; Status DC Gabapentin (Neurontin) 600 mg TID PO Last administered on 07/13/19at 14:13; Start 07/12/19 at 21:00 Pramipexole Dihydrochloride (miraPEX) 0.5 mg HS PO Last administered on 07/12/19at 21:22; Start 07/12/19 at 21:00 Clonazepam (KlonoPIN) 1 mg QHS PO Last administered on 07/12/19at 21:22; Start 07/12/19 at 21:00 Quetiapine Fumarate (SEROquel) 50 mg QHS PO Last administered on 07/12/19at 21:22; Start 07/12/19 at 21:00 Nicotine Polacrilex (Nicorette Gum) 1 each PRN Q1HR PRN BC SMOKING CESSATION Last administered on 07/13/19at 14:12; Start 07/13/19 at 10:45 Methylprednisolone (Medrol) 8 mg BID PO Last administered on 07/13/19at 14:33; Start 07/13/19 at 13:30; Stop 07/13/19 at 21:01 Methylprednisolone (Medrol) 4 mg Q3H PO ; Start 07/13/19 at 16:00; Stop 07/13/19 at 19:01 Methylprednisolone (Medrol) 4 mg TIDPC PO ; Start 07/14/19 at 08:30; Stop 07/14/19 at 17:31 Methylprednisolone (Medrol) 8 mg QHS PO ; Start 07/14/19 at 21:00; Stop 07/14/19 at 21:01 Methylprednisolone (Medrol) 4 mg QIDAFTMEAL PO ; Start 07/15/19 at 09:00; Stop 07/15/19 at 21:01 Methylprednisolone (Medrol) 4 mg TID PO ; Start 07/16/19 at 09:00; Stop 07/16/19 at 21:01 Methylprednisolone (Medrol) 4 mg BID PO ; Start 07/17/19 at 09:00; Stop 07/17/19 at 21:01 Methylprednisolone (Medrol) 4 mg DAILY PO ; Start 07/18/19 at 09:00; Stop 07/18/19 at 09:01 Pantoprazole Sodium (Protonix) 40 mg DAILYAC PO ; Start 07/13/19 at 16:30 Tizanidine HCl (Zanaflex) 4 mg PRN Q8HRS PRN PO MUSCLE SPASMS; Start 07/13/19 at 13:00 Bisacodyl (Dulcolax Tab) 10 mg DAILY PO ; Start 07/13/19 at 14:00 Senna/Docusate Sodium (Senna Plus) 1 tab BID PO Last administered on 07/13/19at 14:13; Start 07/13/19 at 14:00 Active Scripts Active Reported Mirapex (Pramipexole Di-Hcl) 0.25 Mg Tablet 0.5 Mg PO HS Seroquel (Quetiapine Fumarate) 50 Mg Tablet 1 Tab PO QHS Klonopin (Clonazepam) 1 Mg Tablet 1 Mg PO HS Gabapentin 300 Mg Capsule 600 Mg PO TID Vitals/I & O Vital Sign - Last 24 Hours 07/12/19 07/12/19 07/12/19 07/12/19 15:55 16:30 19:00 19:30 Temp 97.8 97.8 Pulse 78 B/P (MAP) 118/81 (93) Pulse Ox 95 O2 Delivery Room Air Room Air Room Air Room Air 07/12/19 07/12/19 07/12/19 07/13/19 19:58 20:30 23:00 03:00 Temp 98.0 97.7 98.0 97.7 Pulse 72 93 Resp 18 18 B/P (MAP) 119/65 (83) 103/60 (74) Pulse Ox 96 96 O2 Delivery Room Air Room Air Room Air Room Air 07/13/19 07/13/19 07/13/19 07/13/19 07:15 07:56 08:03 08:40 Temp 97.7 97.7 Pulse 66 Resp 20 B/P (MAP) 110/68 (82) Pulse Ox 97 O2 Delivery Room Air Room Air Room Air Room Air 07/13/19 07/13/19 07/13/19 07/13/19 11:11 12:01 12:41 14:15 Temp 97.7 97.7 Pulse 66 Resp 18 B/P (MAP) 137/68 (91) Pulse Ox 98 O2 Delivery Room Air Room Air Room Air Room Air 07/13/19 15:05 Temp 98.2 98.2 Pulse 89 Resp 18 B/P (MAP) 144/75 (98) Pulse Ox 97 O2 Delivery Room Air Intake and Output 07/12/19 07/12/19 07/13/19 15:00 23:00 07:00 Intake Total 600 ml Balance 600 ml [facility] JOSEPH MD Jul 13, 2019 15:38
--- NOTE | 2019-07-13 15:57 | PDOC2 ---
NEUROLOGY CONSULT Date of Admission Date of Admission DATE: 07/13/19 TIME: 15:41 Reason for Consult Reason for Consult: IMPRESSION: Numbness, tingling and weakness in right UE x 2 days before admission. Numbness and tingling in bilateral LE, left > right, worse x 2 days. Fall. Severe C5-C6 stenosis. Severe L3-L4, L4-L5 stenosis. Prostate cancer. Smoking. RECOMMENDATIONS/PLAN: Brain MRI w/o contrast. C-spine MRI performed. Neurontin. Lab: see orders. Neurosurgery on team. History of Present Illness This is a 58-year-old male patient with past medical history of prostate cancer who was admitted into hospital for further evaluation for his sensory and motor symptoms. He stated he had a fall from own height about 2 days prior to his visit to ER this time. He developed symptoms of numbness, tingling in his bilateral LE but his symptoms became worse after falling. He also has symptoms of numbness, tingling and weakness in his right UE. He complained significant back pain as well. Past Medical History Heme/Onc: Prostate cancer. PAST SURGERY HISTORY: No major surgery recently. ALLERGY: NKDA MEDICATIONS: Refer to [facility] HISTORY: Non contributory. SOCIAL HISTORY: Lives at home. Denies illicit drug use. He smokes 1/2 pack of cigarettes a day for about 20 years. He drinks alcohol sometimes. REVIEW OF SYSTEMS: Constitutional: No malnutrition, weight loss, cachexia. Head: No traumatic brain or head injury. Skin: No edema, or rash. Ear: No infection. Eyes: No vision loss or color blindness. Nose: No bleeding or purulent discharges. Hearing: mild hearing decrease. Neck: No injury. Cardiac: No CT, arrhythmia. Pulmonary: No pneumonia.. GI: No GI ulcer, GI bleeding. Urinary/genital: Prostate cancer. Endocrinologic: No cousin face, craniofacial dysmorphism, polydactyly. Skeletomuscular: Right UE weakness. Neurological: see HP. Psychiatric: Denies drug use/abuse. Otherwise, not [id number] review of systems. PHYSICAL EXAMINATION: General appearance is in subacute distress. HEENT: Normocephalic and nontraumatic. Eyes, nose, ears, and throat are unremarkable. Neck is supple. No lymphadenopathy. No bruits are heard over the carotid artery. No crepitus. Cardiovascular: S1, S2, regular rate and rhythm. Pulmonary: Clear to auscultation bilaterally. Abdomen: Bowel sounds are positive. Extremities: No rash, lesions, or edema. No restriction of range of motion NEUROLOGICAL EXAMINATION: Alert Oriented to time, place and person. PERRL. EOMI. CN: no focal findings. Muscle tone: within normal. Muscle strength: 4- right UE, 5- the rest. DTR: 2 Plantar reflex: Neutral response bilaterally Gait: not examined while in bed. Sensory exam: no acute abnormal findings. No cerebellar signs elicited. F-T-N test fine. Current Medications Current Medications Current Medications Acetaminophen/ Hydrocodone Bitart (Lortab 5/325) 1 tab 1X ONCE PO Last administered on 07/12/19at 10:11; Start 07/12/19 at 10:15; Stop 07/12/19 at 10:16; Status DC Lorazepam (Ativan) 0.5 mg 1X ONCE PO Last administered on 07/12/19at 10:11; Start 07/12/19 at 10:15; Stop 07/12/19 at 10:16; Status DC Ondansetron HCl (Zofran) 4 mg PRN Q4HRS PRN IV NAUSEA/VOMITING Last administered on 07/12/19at 17:17; Start 07/12/19 at 10:15 Zolpidem Tartrate (Ambien) 5 mg PRN QHS PRN PO INSOMNIA; Start 07/12/19 at 10:15 Acetaminophen (Tylenol) 650 mg PRN Q4HRS PRN PO TEMP OVER 100.4F OR MILD PAIN; Start 07/12/19 at 10:15 Diphenhydramine HCl (Benadryl) 25 mg PRN Q4HRS PRN IVP ITCHING; Start 07/12/19 at 10:15 Docusate Sodium (Colace) 100 mg PRN BID PRN PO CONSTIPATION; Start 07/12/19 at 10:15 Albuterol Sulfate (Ventolin Neb Soln) 2.5 mg PRN Q4HRS PRN NEB SHORTNESS OF BREATH; Start 07/12/19 at 10:15 Lorazepam (Ativan) 0.5 mg PRN Q4HRS PRN PO ANXIETY / AGITATION Last administered on 07/12/19at 16:02; Start 07/12/19 at 10:15 Nicotine (Nicoderm Cq 21mg) 1 patch PRN DAILY PRN TD SMOKING CESSATION Last administered on 07/13/19at 09:37; Start 07/12/19 at 10:30 Morphine Sulfate (Morphine Sulfate) 2 mg PRN Q2HR PRN IV PAIN Last administered on 07/13/19at 14:15; Start 07/12/19 at 12:15 Gabapentin (Neurontin) 200 mg TID PO ; Start 07/12/19 at 21:00; Stop 07/12/19 at 18:36; Status DC Gabapentin (Neurontin) 600 mg TID PO Last administered on 07/13/19at 14:13; Start 07/12/19 at 21:00 Pramipexole Dihydrochloride (miraPEX) 0.5 mg HS PO Last administered on 07/12/19at 21:22; Start 07/12/19 at 21:00 Clonazepam (KlonoPIN) 1 mg QHS PO Last administered on 07/12/19at 21:22; Start 07/12/19 at 21:00 Quetiapine Fumarate (SEROquel) 50 mg QHS PO Last administered on 07/12/19at 21:22; Start 07/12/19 at 21:00 Nicotine Polacrilex (Nicorette Gum) 1 each PRN Q1HR PRN BC SMOKING CESSATION Last administered on 07/13/19at 14:12; Start 07/13/19 at 10:45 Methylprednisolone (Medrol) 8 mg BID PO Last administered on 07/13/19at 14:33; Start 07/13/19 at 13:30; Stop 07/13/19 at 21:01 Methylprednisolone (Medrol) 4 mg Q3H PO ; Start 07/13/19 at 16:00; Stop 07/13/19 at 19:01 Methylprednisolone (Medrol) 4 mg TIDPC PO ; Start 07/14/19 at 08:30; Stop 07/14/19 at 17:31 Methylprednisolone (Medrol) 8 mg QHS PO ; Start 07/14/19 at 21:00; Stop 07/14/19 at 21:01 Methylprednisolone (Medrol) 4 mg QIDAFTMEAL PO ; Start 07/15/19 at 09:00; Stop 07/15/19 at 21:01 Methylprednisolone (Medrol) 4 mg TID PO ; Start 07/16/19 at 09:00; Stop 07/16/19 at 21:01 Methylprednisolone (Medrol) 4 mg BID PO ; Start 07/17/19 at 09:00; Stop 07/17/19 at 21:01 Methylprednisolone (Medrol) 4 mg DAILY PO ; Start 07/18/19 at 09:00; Stop 07/18/19 at 09:01 Pantoprazole Sodium (Protonix) 40 mg DAILYAC PO ; Start 07/13/19 at 16:30 Tizanidine HCl (Zanaflex) 4 mg PRN Q8HRS PRN PO MUSCLE SPASMS; Start 07/13/19 at 13:00 Bisacodyl (Dulcolax Tab) 10 mg DAILY PO ; Start 07/13/19 at 14:00 Senna/Docusate Sodium (Senna Plus) 1 tab BID PO Last administered on 07/13/19at 14:13; Start 07/13/19 at 14:00 Active Scripts Active Reported Mirapex (Pramipexole Di-Hcl) 0.25 Mg Tablet 0.5 Mg PO HS Seroquel (Quetiapine Fumarate) 50 Mg Tablet 1 Tab PO QHS Klonopin (Clonazepam) 1 Mg Tablet 1 Mg PO HS Gabapentin 300 Mg Capsule 600 Mg PO TID Allergies Allergies: Allergies Coded Allergies Type Severity Reaction Last Updated Verified No Known Drug Allergies 07/12/19 No ROS Review of System The patient denies any associated fevers, chills, headache, ear pain, rhinorrhea, sore throat, stiff neck, productive cough, chest pain, shortness of breath, back or flank pain, abdominal pain, nausea, vomiting, diarrhea, constipation, dysuria, rash, numbness, weakness, tingling, incontinence, difficulty ambulating, or diaphoresis. Physical Exam Physical Exam General: Well developed, well nourished, no acute distress, well appearing HEENT: Pupils equally round and reactive to light, EOMI, no discharge, normal conjunctiva Neck: Supple, no nuchal rigidity, no JVD, trachea midline, no tenderness Cardiac: RRR, no murmurs, no gallops, no rubs Chest/Lungs: CTAB, no wheeze, no rhonchi, no crackles Abdomen: soft, non-distended, no guarding, no peritoneal signs, non-tender Back: No tenderness Extremities: no edema, pulses intact, non-tender,capillary refill <3 sec bilateral upper and lower extremities, Neuro: Alert and oriented x 4, no focal deficits, normal speech Vitals Vitals: Vital Signs Date Time Temp Pulse Resp B/P (MAP) Pulse Ox O2 Delivery O2 Flow Rate FiO2 07/13/19 15:05 98.2 89 18 144/75 (98) 97 Room Air 98.2 Labs Labs Laboratory Tests Test 07/12/19 10:17 07/12/19 12:59 07/12/19 20:30 White Blood Count 10.7 x10^3/uL (4.0-11.0) Red Blood Count 4.81 x10^6/uL (4.30-5.70) Hemoglobin 14.8 g/dL (13.0-17.5) Hematocrit 43.9 % (39.0-53.0) Mean Corpuscular Volume 91 fL (79-100) Mean Corpuscular Hemoglobin 31 pg (25-35) Mean Corpuscular Hemoglobin Concent 34 g/dL (31-37) Red Cell Distribution Width 14.0 % (11.5-14.5) Platelet Count 255 x10^3/uL (140-400) Neutrophils (%) (Auto) 68 % (31-73) Lymphocytes (%) (Auto) 20 % (24-48) Monocytes (%) (Auto) 8 % (0-9) Eosinophils (%) (Auto) 4 % (0-3) Basophils (%) (Auto) 0 % (0-3) Neutrophils # (Auto) 7.2 x10^3/uL (1.8-7.7) Lymphocytes # (Auto) 2.1 x10^3/uL (1.0-4.8) Monocytes # (Auto) 0.8 x10^3/uL (0.0-1.1) Eosinophils # (Auto) 0.4 x10^3/uL (0.0-0.7) Basophils # (Auto) 0.0 x10^3/uL (0.0-0.2) Sodium Level 140 mmol/L (136-145) Potassium Level 4.4 mmol/L (3.5-5.1) Chloride Level 101 mmol/L (98-107) Carbon Dioxide Level 29 mmol/L (21-32) Anion Gap 10 (6-14) Blood Urea Nitrogen 19 mg/dL (8-26) Creatinine 0.9 mg/dL (0.7-1.3) Estimated GFR (Cockcroft-Gault) 86.4 BUN/Creatinine Ratio 21 (6-20) Glucose Level 114 mg/dL (70-99) Calcium Level 9.4 mg/dL (8.5-10.1) Total Bilirubin 0.3 mg/dL (0.2-1.0) Aspartate Amino Transf (AST/SGOT) 39 U/L (15-37) Alanine Aminotransferase (ALT/SGPT) 46 U/L (16-63) Alkaline Phosphatase 102 U/L (46-116) Total Protein 7.1 g/dL (6.4-8.2) Albumin 3.9 g/dL (3.4-5.0) Albumin/Globulin Ratio 1.2 (1.0-1.7) Creatine Kinase 617 U/L (39-308) Vitamin B12 Level 594 pg/mL (247-911) Thyroid Stimulating Hormone (TSH) 3.677 uIU/mL (0.358-3.74) Urine Opiates Screen Pos (NEG) Urine Methadone Screen Neg (NEG) Urine Barbiturates Neg (NEG) Urine Phencyclidine Screen Neg (NEG) Urine Amphetamine/Methamphetamine Neg (NEG) Urine Benzodiazepines Screen Neg (NEG) Urine Cocaine Screen Neg (NEG) Urine Cannabinoids Screen Neg (NEG) Urine Ethyl Alcohol Neg (NEG) Laboratory Tests Test 07/12/19 20:30 Urine Opiates Screen Pos (NEG) Urine Methadone Screen Neg (NEG) Urine Barbiturates Neg (NEG) Urine Phencyclidine Screen Neg (NEG) Urine Amphetamine/Methamphetamine Neg (NEG) Urine Benzodiazepines Screen Neg (NEG) Urine Cocaine Screen Neg (NEG) Urine Cannabinoids Screen Neg (NEG) Urine Ethyl Alcohol Neg (NEG) DEVIKA BLUM MD Jul 13, 2019 15:57
[2019-07-13] MEDS: PANTOPRAZOLE 40 MG TABLET.DR. PO SCH (16:45)
[2019-07-13 19:00] VITALS: BP 129/81
--- NOTE | 2019-07-13 19:39 | NUR ---
Pt. left floor around shift change. 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 Security told pt. to come back upstairs but pt. refused at that time. Pt. ended up coming back to floor on his own. This RN educated pt. on smoking policy and pt. became angry. Pt. calmed down and closed door. RN will monitor.
[2019-07-13] MEDS: clonazePAM 0.5 MG TABLET PO SCH (20:43)
[2019-07-13] MEDS: PRAMIPEXOLE 0.25 MG TABLET. PO SCH (20:43)
[2019-07-13 23:55] VITALS: BP 142/75
[2019-07-14] MEDS: QUEtiapine 25 MG TABLET. PO SCH (00:18)
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
[2019-07-14] MEDS: NICOTINE POLACRILEX 2MG GUM PACKAGE of 12. BC PRN (01:08)
[2019-07-14 03:44] VITALS: BP 120/79
[2019-07-14] MEDS: MORPHINE SULFATE 2 MG/ML VIAL. IV PRN ×2 (05:22→08:36)
[2019-07-14] MEDS: PANTOPRAZOLE 40 MG TABLET.DR. PO SCH (05:22)
[2019-07-14] MEDS: ONDANSETRON PF 4 MG/2 ML VIAL. IV PRN (06:14)
[2019-07-14 07:00] VITALS: BP 119/65
[2019-07-14] MEDS ORDERED: methylPREDNISolone 4 MG TABLET. PO SCH ×2 (08:30→21:00)
[2019-07-14] MEDS ORDERED: METH4TAB2 PO (08:33)
[2019-07-14] MEDS ORDERED: PANT40TA77 PO (08:33)
--- NOTE | 2019-07-14 08:34 | PDOC ---
PROGRESS NOTES Chief Complaint Chief Complaint Severe canal stenosis at L3-L4 and L4-5. Degenerative changes of the spine noted. Neurology, neurosurgery consulted Spinal canal and foraminal stenoses are present. History of prostate cancer Mild rhabdomyolysis Numbness, tingling and weakness in right UE x 2 days before admission. Numbness and tingling in bilateral LE, left > right, worse x 2 days. Fall. Severe C5-C6 stenosis. Smoking. History of Present Illness History of Present Illness Mr Villeda is a 58 year old male with past medical history of prostate cancer who was in his [facility] state of health until the day prior to admission when he suffered a fall from own height, He slipped backwards and fell on his back. Patient tried to self medicate at home with very little relief of his symptoms that included paresthesias in his upper extremities. He describes an exquisite pain over his thoracic verterae around the the t10 level. Patient denies loss of consciousness, no blurred vision, no slurred speech, he does refer some weakness over the upper extremities reason why he decided to consult the ER. Patient found to have spinal stenosis, and Dr Hanks was contacted, he requested admission to our service and MRI of the thoracic spine. Feeling numb and weak in right hand. Neurology, neurosurgery, and PMR consulted. MRI Cervical Spine: Straightening of the normal cervical lordosis. Normal vertebral body height. No fracture. Generally small spinal canal. Minimal degenerative endplate edema C4- C5 and C6-C7. T2/STIR hyperintense signal within the cervical cord at the C5-C6 level. C2-C3: Small central disc protrusion. No canal narrowing. Uncovertebral and facet arthropathy. Mild inferior right neuroforaminal narrowing. No left neuroforaminal narrowing. C3-C4: Posterior disc osteophyte complex. Mild to moderate canal narrowing. Cord flattening. Facet arthropathy. No neuroforaminal narrowing. C4-C5: Posterior disc osteophyte complex. Moderate canal narrowing. Cord flattening. Uncovertebral and facet arthropathy. Severe right and moderate to severe left neuroforaminal narrowing. C5-C6: Posterior disc osteophyte complex. Severe canal narrowing. Cord flattening. Uncovertebral and facet arthropathy. Severe bilateral neural foraminal narrowing. C6-C7: Posterior disc osteophyte complex. Moderate to severe canal narrowing. Cord flattening. Uncovertebral and facet arthropathy. Severe right and moderate to severe left neuroforaminal narrowing. C7-T1: Posterior disc bulge. No canal narrowing. Uncovertebral and facet arthropathy. Moderate to severe right and moderate left neuroforaminal narrowing. Upper thoracic facet arthropathy contributing to mild neuroforaminal narrowing. Impression: 1. 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 2. Increased signal within the cervical cord at the C5-C6 level, may relate to edema or myelomalacia. 3. Multilevel severe neural foraminal narrowing, as described. Feeling improved, worked with PT/OT. Had MRI brain scheduled, he does not wish for this testing, plan for 4-6 week outpatient f/u with neurosurgery and discharge back to [facility] where he is currently residing with script for neurontin, medrol, and PPI. Vitals Vitals Vital Signs Date Time Temp Pulse Resp B/P (MAP) Pulse Ox O2 Delivery O2 Flow Rate FiO2 07/14/19 05:52 Room Air 07/14/19 03:44 97.6 84 16 120/79 (93) 94 97.6 Physical Exam General: Alert, Oriented X3, Cooperative Heart: Regular rate, Normal S1, Normal S2 Lungs: Clear Abdomen: Normal bowel sounds, Soft Extremities: No clubbing, No cyanosis Skin: No rashes, No breakdown Assessment and Plan Assessmemt and Plan Problems Medical Problems: (1) Low back pain Status: Acute (2) Neck pain Status: Acute (3) Paresthesia of hand, bilateral Status: Acute (4) Wristdrop Status: Acute Comment Review of Relevant I have reviewed the following items amrita (where applicable) has been applied. Labs Laboratory Tests Test 07/12/19 10:17 07/12/19 12:59 07/12/19 20:30 White Blood Count 10.7 x10^3/uL (4.0-11.0) Red Blood Count 4.81 x10^6/uL (4.30-5.70) Hemoglobin 14.8 g/dL (13.0-17.5) Hematocrit 43.9 % (39.0-53.0) Mean Corpuscular Volume 91 fL (79-100) Mean Corpuscular Hemoglobin 31 pg (25-35) Mean Corpuscular Hemoglobin Concent 34 g/dL (31-37) Red Cell Distribution Width 14.0 % (11.5-14.5) Platelet Count 255 x10^3/uL (140-400) Neutrophils (%) (Auto) 68 % (31-73) Lymphocytes (%) (Auto) 20 % (24-48) Monocytes (%) (Auto) 8 % (0-9) Eosinophils (%) (Auto) 4 % (0-3) Basophils (%) (Auto) 0 % (0-3) Neutrophils # (Auto) 7.2 x10^3/uL (1.8-7.7) Lymphocytes # (Auto) 2.1 x10^3/uL (1.0-4.8) Monocytes # (Auto) 0.8 x10^3/uL (0.0-1.1) Eosinophils # (Auto) 0.4 x10^3/uL (0.0-0.7) Basophils # (Auto) 0.0 x10^3/uL (0.0-0.2) Sodium Level 140 mmol/L (136-145) Potassium Level 4.4 mmol/L (3.5-5.1) Chloride Level 101 mmol/L (98-107) Carbon Dioxide Level 29 mmol/L (21-32) Anion Gap 10 (6-14) Blood Urea Nitrogen 19 mg/dL (8-26) Creatinine 0.9 mg/dL (0.7-1.3) Estimated GFR (Cockcroft-Gault) 86.4 BUN/Creatinine Ratio 21 (6-20) Glucose Level 114 mg/dL (70-99) Calcium Level 9.4 mg/dL (8.5-10.1) Total Bilirubin 0.3 mg/dL (0.2-1.0) Aspartate Amino Transf (AST/SGOT) 39 U/L (15-37) Alanine Aminotransferase (ALT/SGPT) 46 U/L (16-63) Alkaline Phosphatase 102 U/L (46-116) Total Protein 7.1 g/dL (6.4-8.2) Albumin 3.9 g/dL (3.4-5.0) Albumin/Globulin Ratio 1.2 (1.0-1.7) Creatine Kinase 617 U/L (39-308) Vitamin B12 Level 594 pg/mL (247-911) Thyroid Stimulating Hormone (TSH) 3.677 uIU/mL (0.358-3.74) Urine Opiates Screen Pos (NEG) Urine Methadone Screen Neg (NEG) Urine Barbiturates Neg (NEG) Urine Phencyclidine Screen Neg (NEG) Urine Amphetamine/Methamphetamine Neg (NEG) Urine Benzodiazepines Screen Neg (NEG) Urine Cocaine Screen Neg (NEG) Urine Cannabinoids Screen Neg (NEG) Urine Ethyl Alcohol Neg (NEG) Medications Current Medications Acetaminophen/ Hydrocodone Bitart (Lortab 5/325) 1 tab 1X ONCE PO Last administered on 07/12/19at 10:11; Start 07/12/19 at 10:15; Stop 07/12/19 at 10:16; Status DC Lorazepam (Ativan) 0.5 mg 1X ONCE PO Last administered on 07/12/19at 10:11; Start 07/12/19 at 10:15; Stop 07/12/19 at 10:16; Status DC Ondansetron HCl (Zofran) 4 mg PRN Q4HRS PRN IV NAUSEA/VOMITING Last administered on 07/14/19at 06:14; Start 07/12/19 at 10:15 Zolpidem Tartrate (Ambien) 5 mg PRN QHS PRN PO INSOMNIA; Start 07/12/19 at 10:15 Acetaminophen (Tylenol) 650 mg PRN Q4HRS PRN PO TEMP OVER 100.4F OR MILD PAIN; Start 07/12/19 at 10:15 Diphenhydramine HCl (Benadryl) 25 mg PRN Q4HRS PRN IVP ITCHING; Start 07/12/19 at 10:15 Docusate Sodium (Colace) 100 mg PRN BID PRN PO CONSTIPATION; Start 07/12/19 at 10:15 Albuterol Sulfate (Ventolin Neb Soln) 2.5 mg PRN Q4HRS PRN NEB SHORTNESS OF BREATH; Start 07/12/19 at 10:15 Lorazepam (Ativan) 0.5 mg PRN Q4HRS PRN PO ANXIETY / AGITATION Last administered on 07/12/19at 16:02; Start 07/12/19 at 10:15 Nicotine (Nicoderm Cq 21mg) 1 patch PRN DAILY PRN TD SMOKING CESSATION Last administered on 07/13/19at 09:37; Start 07/12/19 at 10:30 Morphine Sulfate (Morphine Sulfate) 2 mg PRN Q2HR PRN IV PAIN Last administered on 07/14/19at 05:22; Start 07/12/19 at 12:15 Gabapentin (Neurontin) 200 mg TID PO ; Start 07/12/19 at 21:00; Stop 07/12/19 at 18:36; Status DC Gabapentin (Neurontin) 600 mg TID PO Last administered on 07/13/19at 20:43; Start 07/12/19 at 21:00 Pramipexole Dihydrochloride (miraPEX) 0.5 mg HS PO Last administered on 07/13/19at 20:43; Start 07/12/19 at 21:00 Clonazepam (KlonoPIN) 1 mg QHS PO Last administered on 07/13/19at 20:43; Start 07/12/19 at 21:00 Quetiapine Fumarate (SEROquel) 50 mg QHS PO Last administered on 07/14/19at 00:18; Start 07/12/19 at 21:00 Nicotine Polacrilex (Nicorette Gum) 1 each PRN Q1HR PRN BC SMOKING CESSATION Last administered on 07/14/19at 01:08; Start 07/13/19 at 10:45 Methylprednisolone (Medrol) 8 mg BID PO Last administered on 07/13/19at 20:44; Start 07/13/19 at 13:30; Stop 07/13/19 at 21:01; Status DC Methylprednisolone (Medrol) 4 mg Q3H PO Last administered on 07/13/19at 18:23; Start 07/13/19 at 16:00; Stop 07/13/19 at 19:01; Status DC Methylprednisolone (Medrol) 4 mg TIDPC PO ; Start 07/14/19 at 08:30; Stop 07/14/19 at 17:31 Methylprednisolone (Medrol) 8 mg QHS PO ; Start 07/14/19 at 21:00; Stop 07/14/19 at 21:01 Methylprednisolone (Medrol) 4 mg QIDAFTMEAL PO ; Start 07/15/19 at 09:00; Stop 07/15/19 at 21:01 Methylprednisolone (Medrol) 4 mg TID PO ; Start 07/16/19 at 09:00; Stop 07/16/19 at 21:01 Methylprednisolone (Medrol) 4 mg BID PO ; Start 07/17/19 at 09:00; Stop 07/17/19 at 21:01 Methylprednisolone (Medrol) 4 mg DAILY PO ; Start 07/18/19 at 09:00; Stop 07/18/19 at 09:01 Pantoprazole Sodium (Protonix) 40 mg DAILYAC PO Last administered on 07/14/19at 05:22; Start 07/13/19 at 16:30 Tizanidine HCl (Zanaflex) 4 mg PRN Q8HRS PRN PO MUSCLE SPASMS Last administered on 07/14/19at 05:22; Start 07/13/19 at 13:00 Bisacodyl (Dulcolax Tab) 10 mg DAILY PO ; Start 07/13/19 at 14:00 Senna/Docusate Sodium (Senna Plus) 1 tab BID PO Last administered on 07/13/19at 20:44; Start 07/13/19 at 14:00 Meloxicam (Mobic) 7.5 mg BID PO ; Start 07/14/19 at 09:00 Active Scripts Active Pantoprazole Sodium (Pantoprazole Sodium) 40 Mg Tablet.dr 40 Mg PO DAILYAC 30 Days Medrol (Methylprednisolone) 4 Mg Tab.ds.pk 1 Pkg PO UD 6 Days Reported Mirapex (Pramipexole Di-Hcl) 0.25 Mg Tablet 0.5 Mg PO HS Seroquel (Quetiapine Fumarate) 50 Mg Tablet 1 Tab PO QHS Klonopin (Clonazepam) 1 Mg Tablet 1 Mg PO HS Gabapentin 300 Mg Capsule 600 Mg PO TID Vitals/I & O Vital Sign - Last 24 Hours 07/13/19 07/13/19 07/13/19 07/13/19 08:40 11:11 12:01 12:41 Temp 97.7 97.7 Pulse 66 Resp 18 B/P (MAP) 137/68 (91) Pulse Ox 98 O2 Delivery Room Air Room Air Room Air Room Air 07/13/19 07/13/19 07/13/19 07/13/19 14:15 15:00 15:05 18:33 Temp 98.2 98.2 Pulse 89 Resp 18 B/P (MAP) 144/75 (98) Pulse Ox 97 O2 Delivery Room Air Room Air Room Air Room Air 2/2007/13/19 07/13/19 07/13/19 19:00 19:00 20:00 20:44 Temp 98.6 98.6 Pulse 86 Resp 18 B/P (MAP) 129/81 (97) Pulse Ox 95 O2 Delivery Room Air Room Air Room Air Room Air 07/13/19 07/13/19 07/13/19 07/13/19 21:14 23:26 23:55 23:56 Temp 98.3 98.3 Pulse 96 Resp 18 B/P (MAP) 142/75 (97) Pulse Ox 93 O2 Delivery Room Air Room Air Room Air Room Air 07/14/19 07/14/19 07/14/19 03:44 05:22 05:52 Temp 97.6 97.6 Pulse 84 Resp 16 B/P (MAP) 120/79 (93) Pulse Ox 94 O2 Delivery Room Air Room Air Room Air Intake and Output 07/13/19 07/13/19 07/14/19 15:00 23:00 07:00 Intake Total 1400 ml 700 ml Output Total 950 ml 2400 ml Balance 450 ml -1700 ml MORGAN ABRAHAM MD Jul 14, 2019 08:34
[2019-07-14] MEDS: SENNOSIDES/DOCUSATE 8.6/50MG TABLET. PO SCH (08:36)
[2019-07-14] MEDS: NICOTINE 21MG PATCH. TD PRN (08:36)
[2019-07-14] MEDS: BISACODYL 5 MG TABLET.DR. PO SCH (08:36)
[2019-07-14] MEDS: GABAPENTIN 300 MG CAPSULE. PO SCH (08:36)
[2019-07-14] MEDS ORDERED: MELOXICAM 7.5 MG TABLET PO SCH (09:00)
[2019-07-14] MEDS ORDERED: GABA300C18 PO (09:01)
--- NOTE | 2019-07-14 09:05 | PDOC3 ---
Discharge Summary Visit Information Date of Admission: Jul 12, 2019 Date of Discharge: Jul 14, 2019 Admitting Diagnosis: Right hand weakness Final Diagnosis Problems Medical Problems: (1) Low back pain Status: Acute (2) Neck pain Status: Acute (3) Paresthesia of hand, bilateral Status: Acute (4) Wristdrop Status: Acute Brief Hospital Course Allergies Allergies Coded Allergies Type Severity Reaction Last Updated Verified No Known Drug Allergies 07/12/19 No Vital Signs Vital Signs Date Time Temp Pulse Resp B/P (MAP) Pulse Ox O2 Delivery O2 Flow Rate FiO2 07/14/19 08:36 94 Room Air 07/14/19 07:00 97.8 77 18 119/65 (83) 97.8 Lab Results Laboratory Tests Test 07/12/19 10:17 07/12/19 12:59 07/12/19 20:30 White Blood Count 10.7 x10^3/uL (4.0-11.0) Red Blood Count 4.81 x10^6/uL (4.30-5.70) Hemoglobin 14.8 g/dL (13.0-17.5) Hematocrit 43.9 % (39.0-53.0) Mean Corpuscular Volume 91 fL (79-100) Mean Corpuscular Hemoglobin 31 pg (25-35) Mean Corpuscular Hemoglobin Concent 34 g/dL (31-37) Red Cell Distribution Width 14.0 % (11.5-14.5) Platelet Count 255 x10^3/uL (140-400) Neutrophils (%) (Auto) 68 % (31-73) Lymphocytes (%) (Auto) 20 % (24-48) Monocytes (%) (Auto) 8 % (0-9) Eosinophils (%) (Auto) 4 % (0-3) Basophils (%) (Auto) 0 % (0-3) Neutrophils # (Auto) 7.2 x10^3/uL (1.8-7.7) Lymphocytes # (Auto) 2.1 x10^3/uL (1.0-4.8) Monocytes # (Auto) 0.8 x10^3/uL (0.0-1.1) Eosinophils # (Auto) 0.4 x10^3/uL (0.0-0.7) Basophils # (Auto) 0.0 x10^3/uL (0.0-0.2) Sodium Level 140 mmol/L (136-145) Potassium Level 4.4 mmol/L (3.5-5.1) Chloride Level 101 mmol/L (98-107) Carbon Dioxide Level 29 mmol/L (21-32) Anion Gap 10 (6-14) Blood Urea Nitrogen 19 mg/dL (8-26) Creatinine 0.9 mg/dL (0.7-1.3) Estimated GFR (Cockcroft-Gault) 86.4 BUN/Creatinine Ratio 21 (6-20) Glucose Level 114 mg/dL (70-99) Calcium Level 9.4 mg/dL (8.5-10.1) Total Bilirubin 0.3 mg/dL (0.2-1.0) Aspartate Amino Transf (AST/SGOT) 39 U/L (15-37) Alanine Aminotransferase (ALT/SGPT) 46 U/L (16-63) Alkaline Phosphatase 102 U/L (46-116) Total Protein 7.1 g/dL (6.4-8.2) Albumin 3.9 g/dL (3.4-5.0) Albumin/Globulin Ratio 1.2 (1.0-1.7) Creatine Kinase 617 U/L (39-308) Vitamin B12 Level 594 pg/mL (247-911) Thyroid Stimulating Hormone (TSH) 3.677 uIU/mL (0.358-3.74) Urine Opiates Screen Pos (NEG) Urine Methadone Screen Neg (NEG) Urine Barbiturates Neg (NEG) Urine Phencyclidine Screen Neg (NEG) Urine Amphetamine/Methamphetamine Neg (NEG) Urine Benzodiazepines Screen Neg (NEG) Urine Cocaine Screen Neg (NEG) Urine Cannabinoids Screen Neg (NEG) Urine Ethyl Alcohol Neg (NEG) Brief Hospital Course Mr Villeda is a 58 year old male with past medical history of prostate cancer who was in his [facility] state of health until the day prior to admission when he suffered a fall from own height, He slipped backwards and fell on his back. Patient tried to self medicate at home with very little relief of his symptoms that included paresthesias in his upper extremities. He describes an exquisite pain over his thoracic verterae around the the t10 level. Patient denies loss of consciousness, no blurred vision, no slurred speech, he does refer some weakness over the upper extremities reason why he decided to consult the ER. Patient found to have spinal stenosis, and Dr Hanks was contacted, he requested admission to our service and MRI of the thoracic spine. Feeling numb and weak in right hand. Neurology, neurosurgery, and PMR consulted. MRI Cervical Spine: Straightening of the normal cervical lordosis. Normal vertebral body height. No fracture. Generally small spinal canal. Minimal degenerative endplate edema C4- C5 and C6-C7. T2/STIR hyperintense signal within the cervical cord at the C5-C6 level. C2-C3: Small central disc protrusion. No canal narrowing. Uncovertebral and facet arthropathy. Mild inferior right neuroforaminal narrowing. No left neuroforaminal narrowing. C3-C4: Posterior disc osteophyte complex. Mild to moderate canal narrowing. Cord flattening. Facet arthropathy. No neuroforaminal narrowing. C4-C5: Posterior disc osteophyte complex. Moderate canal narrowing. Cord flattening. Uncovertebral and facet arthropathy. Severe right and moderate to severe left neuroforaminal narrowing. C5-C6: Posterior disc osteophyte complex. Severe canal narrowing. Cord flattening. Uncovertebral and facet arthropathy. Severe bilateral neural foraminal narrowing. C6-C7: Posterior disc osteophyte complex. Moderate to severe canal narrowing. Cord flattening. Uncovertebral and facet arthropathy. Severe right and moderate to severe left neuroforaminal narrowing. C7-T1: Posterior disc bulge. No canal narrowing. Uncovertebral and facet arthropathy. Moderate to severe right and moderate left neuroforaminal narrowing . Upper thoracic facet arthropathy contributing to mild neuroforaminal narrowing. Impression: 1. 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 2. Increased signal within the cervical cord at the C5-C6 level, may relate to edema or myelomalacia. 3. Multilevel severe neural foraminal narrowing, as described. Feeling improved, worked with PT/OT. Had MRI brain scheduled, he does not wish for this testing, plan for 4-6 week outpatient f/u with neurosurgery and discharge back to [facility] where he is currently residing with script for neurontin, medrol, and PPI. Problem list: Severe canal stenosis at L3-L4 and L4-5. Degenerative changes of the spine noted. Neurology, neurosurgery consulted Spinal canal and foraminal stenoses are present. History of prostate cancer Mild rhabdomyolysis Numbness, tingling and weakness in right UE x 2 days before admission. Numbness and tingling in bilateral LE, left > right, worse x 2 days. Fall. Severe C5-C6 stenosis. Smoking. Greater than 30 minutes spent on d/c Discharge Information Condition at Discharge: Improved Follow Up: Weeks (1) Disposition/Orders: D/C to Home Scheduled Clonazepam (Klonopin) 1 Mg Tablet, 1 MG PO HS for insomnia , (Reported) Entered as Reported by: MIKA MADRID RN on 07/12/191647 Last Action: Converted on 07/12/191832 by MIKA MADRID RN Gabapentin (Gabapentin) 300 Mg Capsule, 600 MG PO TID for NEUROGENIC PAIN for 30 Days, #180 Prescribed by: MORGAN ABRAHAM MD on 07/14/19 0901 Methylprednisolone (Medrol) 4 Mg Tab.ds.pk, 1 PKG PO UD for Radiculopathy for 6 Days, #1 Prescribed by: MORGAN ABRAHAM MD on 07/14/19 0833 Pantoprazole Sodium (Pantoprazole Sodium ) 40 Mg Tablet.dr, 40 MG PO DAILYAC for GERD for 30 Days, #30 Prescribed by: MORGAN ABRAHAM MD on 07/14/19 0833 Pramipexole Di-Hcl (Mirapex) 0.25 Mg Tablet, 0.5 MG PO HS for RLS, (Reported) Entered as Reported by: MIKA MADRID RN on 07/12/191723 Last Action: Continued on 07/12/191832 by MIKA MADRID RN Quetiapine Fumarate (Seroquel) 50 Mg Tablet, 1 TAB PO QHS for insomnia , #30 Ref 2 (Reported) Entered as Reported by: MIKA MADRID RN on 07/12/191647 Last Action: Converted on 07/12/191832 by BRENDAN ALBERT CHRISTOPHER S MD Jul 14, 2019 09:05
--- NOTE | 2019-07-14 10:58 | NUR ---
Discharge Note: [facility] Discharge instructions and discharge home medications reviewed with Patient and a copy given. All questions have been answered and understanding verbalized. The following instructions and handouts were given: Diet, activity, medication list and follow up instructions provided to patient. Patient instructed to follow up with Dr. Hanks in 4 weeks. Discontinued lines and drains: Peripheral IV discontinued and catheter intact. Patient discharged to Home or Self Care with Family Member via Ambulated
[2019-07-15] MEDS ORDERED: methylPREDNISolone 4 MG TABLET. PO SCH (09:00)
[2019-07-16] MEDS ORDERED: methylPREDNISolone 4 MG TABLET. PO SCH (09:00)
[2019-07-17] MEDS ORDERED: methylPREDNISolone 4 MG TABLET. PO SCH (09:00)
[2019-07-18] MEDS ORDERED: methylPREDNISolone 4 MG TABLET. PO SCH (09:00)
== END 2019-07-14 10:45 | disposition home or self-care (01) ==
LOC: ER 07:51 → 4 NORTH 10:02
PROVIDERS: ADMIT Internal Medicine; ATTEND Internal Medicine
DX: M48.061 Spinal stenosis, lumbar region without neurogenic claudication (principal); M48.02 Spinal stenosis, cervical region; M47.812 Spondylosis without myelopathy or radiculopathy, cervical region; M21.339 Wrist drop, unspecified wrist; Z85.46 Personal history of malignant neoplasm of prostate; M62.82 Rhabdomyolysis; M47.814 Spondylosis without myelopathy or radiculopathy, thoracic region; F17.210 Nicotine dependence, cigarettes, uncomplicated; W17.89XA Other fall from one level to another, initial encounter; Y92.89 Other specified places as the place of occurrence of the external cause; Y93.89 Activity, other specified
CPT/HCPCS: 36415; 70450; 72125; 72131; 72141; 73030; 80053; 80307; 82550; 82607; 84443; 85025; 96374; 96375; 96376; 97116; 97162; 97530; 99284; G0378; J2270; J2405; J7509; G0379